=== PATIENT | male | born 1970 | race Caucasian/White ===

== ENCOUNTER 2017-08-12 08:52 | Outpatient (CLI) | payer OTHER ==
--- NOTE | 2017-08-17 11:31 | CT Report ---
ABDOMEN ANGIOGRAPHIC CT: 08/12/2017 COMPARISON: Abdomen CT 09/28/2014. INDICATION: Followup celiac artery. Possible dissection. TECHNIQUE: Imaging of the abdomen with intravenous contrast, 100 mL Isovue-[id number]. Coronal and sagittal reformats. FINDINGS There is a 7 mm solid nodule of the anterior mid right lung, axial image number 3. There is a stable right renal cyst. 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 Again seen is little to no flow within the proximal common hepatic artery, which appears to reconstitute just to the right of the inferior vena cava - pancreatic head. The aorta, SMA, ELIZABETH, renal arteries, and iliac systems appear to opacify normally. The liver, spleen, pancreas, and adrenal glands appear unremarkable. There are multiple colon diverticula without evidence of diverticulitis. No free air or free fluid is seen in the abdomen. No bulky adenopathy. No bone lesions are demonstrated. IMPRESSION 1. STABLE APPEARING CELIAC ARTERY DISSECTION. 2. UNCHANGED APPEARANCE OF SLOW TO NO FLOW IN THE PROXIMAL COMMON HEPATIC ARTERY WITH RECONSTITUTION SHORTLY THEREAFTER. 3. PULMONARY NODULE ON THE RIGHT IS APPARENTLY STABLE OVER APPROXIMATELY 23 MONTHS. MTDD
== END 2017-08-12 08:53 | disposition home or self-care (01) ==
LOC: DI 08:52
DX: I77.79 Dissection of other specified artery (principal); R91.1 Solitary pulmonary nodule
CPT/HCPCS: 74175; Q9967

== ENCOUNTER 2018-11-26 11:33 | Emergency (ER) | payer OTHER ==
[2018-11-26] MEDS ORDERED: METOPROLOL SUCCINATE 50 MG TABLET PO STA (12:17)
[2018-11-26] MEDS ORDERED: BENZONATATE 100 MG CAPSULE PO STA (12:17)
--- NOTE | 2018-11-26 12:21 | ED Physician Documentation ---
PD HPI CHEST PAIN - Stated complaint Stated Complaint: SOB/COUGH - Chief complaint Chief Complaint: Resp - History obtained from History obtained from: Patient - History of Present Illness Timing - onset: Yesterday (This is a 48-year-old gentleman with medically managed aortic dissection diagnosed in 2014. No surgery on same. He developed a minimally productive cough yesterday and was coughing a lot yesterday evening in fact threw up last night because of the cough and could not keep down his metoprolol last night. Since last night he is also had constant mild chest pain radiating to the back. It is different in quality and much less in quantity than prior dissection pain. It is not just with coughing though. He is not short of breath. He denies pedal edema or calf pain.) Review of Systems Ten Systems: 10 systems reviewed and negative Constitutional: denies: Fever, Chills Nose: reports: Rhinorrhea / runny nose Cardiac: reports: Chest pain / pressure. denies: Palpitations Respiratory: reports: Cough. denies: Dyspnea GI: denies: Abdominal Pain PD PAST MEDICAL HISTORY - Past Medical History Cardiovascular: None Endocrine/Autoimmune: None GI: GERD - Past Surgical History Past Surgical History: No - Present Medications Home Medications: Ambulatory Orders Medication Instructions Recorded Confirmed Aspirin 81 mg PO 11/26/18 Benzonatate [Tessalon Perle] 100 - 200 mg PO TID PRN #30 capsule 11/26/18 Metoprolol Succinate 100 mg PO 11/26/18 Rabeprazole Sodium 20 mg PO 11/26/18 Ranitidine HCl [Acid Control] 150 mg PO 11/26/18 Rosuvastatin Calcium [Crestor] 20 mg PO 11/26/18 guaiFENesin/CODEINE [Robitussin AC] 5 - 10 ml PO Q6H PRN #120 ml 11/26/18 - Allergies Allergies/Adverse Reactions: Allergies Allergy/AdvReac Type Severity Reaction Status Date / Time No Known Drug Allergies Allergy Verified 09/28/14 17:05 - Social History Does the pt smoke?: No Smoking Status: Never smoker Does the pt drink ETOH?: No Does the pt have substance abuse?: No - Immunizations Immunizations are current?: Yes - POLST Patient has POLST: No PD ED PE NORMAL - Vitals Vital signs reviewed: Yes - General General: Alert and oriented X 3, No acute distress - HEENT HEENT: PERRL, EOMI - Neck Neck: Supple, no meningeal sign, No bony TTP - Cardiac Cardiac: RRR, No murmur - Respiratory Respiratory: No respiratory distress, Clear bilaterally - Abdomen Abdomen: Normal bowel sounds, Soft, Non tender - Derm Derm: Normal color, Warm and dry, No rash - Extremities Extremities: No edema, No calf tenderness / cord - Neuro Neuro: Alert and oriented X 3, Normal speech Results - Vitals Vitals: Vital Signs - 24 hr 11/26/18 11/26/18 11/26/18 11:37 12:06 13:27 Temperature 36.8 C Heart Rate 78 73 83 Respiratory 16 18 18 Rate Blood Pressure 127/82 H 143/76 H 125/82 H O2 Saturation 97 99 99 Oxygen O2 Source Room air - EKG (time done) 1155 Rate: Rate (enter#) (78) Rhythm: NSR [place]: Normal Intervals: Normal CO QRS: Normal Ischemia: Normal ST segments Computer interpretation: Agree with computer - Labs Labs: Laboratory Tests 11/26/18 11/26/18 11/26/18 12:30 12:30 12:30 WBC 6.7 RBC 5.05 Hgb 15.5 Hct 44.6 MCV 88.3 MCH 30.7 MCHC 34.8 RDW 13.1 Plt Count 138 MPV 9.6 Neut # (Auto) 4.5 Lymph # (Auto) 1.0 L [place] # (Auto) 0.9 Eos # (Auto) 0.1 Baso # (Auto) 0.2 H Absolute Nucleated RBC 0.00 Nucleated RBC % 0.0 PT 13.9 H INR 1.2 Sodium 134 L Potassium 3.5 Chloride 102 Carbon Dioxide 25 Anion Gap 7.0 BUN 21 H Creatinine 0.7 Estimated GFR (MDRD) 121 Glucose 114 H Calcium 8.7 Total Bilirubin 0.8 AST 30 ALT 35 Alkaline Phosphatase 85 Troponin I Total Protein 7.6 Albumin 4.5 Globulin 3.1 Albumin/Globulin Ratio 1.5 Lipase 29 11/26/18 12:30 WBC RBC Hgb Hct MCV MCH MCHC RDW Plt Count MPV Neut # (Auto) Lymph # (Auto) [place] # (Auto) Eos # (Auto) Baso # (Auto) Absolute Nucleated RBC Nucleated RBC % PT INR Sodium Potassium Chloride Carbon Dioxide Anion Gap BUN Creatinine Estimated GFR (MDRD) Glucose Calcium Total Bilirubin AST ALT Alkaline Phosphatase Troponin I < 0.04 Total Protein Albumin Globulin Albumin/Globulin Ratio Lipase - Rads (name of study) CTA Chest Radiology: EMP read contemporaneously (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 Seemed benign but the history of dissection at relatively young age and the combination of chest and back pain is worrisome and prompted a workup including CTA of the chest with no acute findings. Departure - Departure Disposition: Home, Self Care Clinical Impression: Cough, Celiac artery dissection Chest pain Qualifiers: Chest pain type: precordial pain Qualified Code(s): R07.2 - Precordial pain Condition: Good Record reviewed to determine appropriate education?: Yes Instructions: ED URI Viral Prescriptions: Benzonatate [Tessalon Perle] 100 - 200 mg PO TID PRN #30 capsule PRN Reason: Cough guaiFENesin/CODEINE [Robitussin AC] 5 - 10 ml PO Q6H PRN #120 ml PRN Reason: Cough Comments: Call your doctor to arrange a follow-up appointment, make the next available appointment. In the interim, return anytime if worse or if new symptoms de velop.
--- NOTE | 2018-11-26 12:34 | XRAY Report ---
Reason: chest pain/cough Procedure Date: 11/26/2018 Accession Number: [id number] / [id number] Procedure: XR - Chest 2 View X-Ray CPT Code: 67667 FULL RESULT: EXAM: CHEST RADIOGRAPHY EXAM DATE: 11/26/2018 11:52 AM. CLINICAL HISTORY: Chest pain/cough. COMPARISON: 04/06/2009 4:44 PM. TECHNIQUE: 2 views. FINDINGS: Lungs/Pleura: No focal opacities evident. No pleural effusion. No pneumothorax. Normal volumes. Mediastinum: Heart and mediastinal contours are unremarkable. Other: None. IMPRESSION: No evidence for acute cardiothoracic process. RADIA
[2018-11-26 12:46] LABS: BASOPHILS # (AUTO) 0.2 10^3/uL (0.0-0.1); BASOPHILS % (AUTO) 2.8 %; EOSINOPHILS # (AUTO) 0.1 10^3/uL (0.0-0.7); EOSINOPHILS % (AUTO) 1.8 %; HGB - HEMOGLOBIN 15.5 g/dL (14.0-18.0); INR 1.2 (0.8-1.2); LYMPHOCYTES % (AUTO) 15.4 %; MEAN CORPUSCULAR HEMOGLOBIN 30.7 pg (27.0-31.0); MEAN CORPUSCULAR HGB CONC 34.8 g/dL (32.0-36.0); MEAN CORPUSCULAR VOLUME 88.3 fL (80.0-94.0); MEAN PLATELET VOLUME 9.6 fL (7.4-11.4); MONOCYTES # (AUTO) 0.9 10^3/uL (0.0-1.0); NEUTROPHILS # (AUTO) 4.5 10^3/uL (1.5-6.6); PLT - PLATELET COUNT 138 10^3/uL (130-450); PT - PROTHROMBIN TIME 13.9 secs (9.9-12.6); RED BLOOD COUNT 5.05 10^6/uL (4.70-6.10); RED CELL DISTRIBUTION WIDTH 13.1 % (12.0-15.0); WHITE BLOOD COUNT 6.7 x10^3/uL (4.8-10.8)
[2018-11-26 12:50] LABS: ALBUMIN 4.5 g/dL (3.2-5.5); ALBUMIN/GLOBULIN RATIO 1.5 (1.0-2.2); BILIRUBIN,TOTAL 0.8 mg/dL (0.2-1.0); CALCIUM 8.7 mg/dL (8.5-10.3); CREATININE 0.7 mg/dL (0.6-1.2); TOTAL PROTEIN 7.6 g/dL (6.7-8.2)
[2018-11-26] MEDS ORDERED: IOPAMIDOL-300 100 ML VIAL ONE (13:06)
--- NOTE | 2018-11-26 14:10 | CT Report ---
Reason: aorta protocol, CP/back pain, H/O dissection, Procedure Date: 11/26/2018 Accession Number: [id number] / [id number] Procedure: CT - ANGIO CHEST W/WO CPT Code: FULL RESULT: EXAM: CT ANGIOGRAM CHEST EXAM DATE: 11/26/2018 01:31 PM. CLINICAL HISTORY: Aorta protocol, CP/back pain, H/O dissection. COMPARISON: ABDOMEN ANGIO 08/12/2017 9:10 AM ANGIO AORTA W/RUNOFF 09/28/2014 7:04 PM. TECHNIQUE: Routine helical imaging was performed through the chest in the pulmonary arterial phase. IV Contrast: ISOVUE 300 100mL. Reconstructions: Coronal 3-D MIP reconstructions.Sagittal and coronal. In accordance with CT protocol optimization, one or more of the following dose reduction techniques were utilized for this exam: automated exposure control, adjustment of mA and/or KV based on patient size, or use of iterative reconstructive technique. FINDINGS: Vascular: No evidence for thoracic aortic aneurysm or dissection. The central pulmonary arteries demonstrate no evidence for pulmonary embolism. Lungs/Pleura: No consolidation, effusions or pneumothorax. Stable 7 mm pulmonary nodule right middle lobe (axial series 6, image 64) when compared back to 09/28/14. Mediastinum: No cardiac enlargement or adenopathy. Upper Abdomen: Chronic proximal celiac artery dissection. Little to no flow within proximal common hepatic artery, reconstituting just to the right of the inferior vena cava, stable. Other: None. IMPRESSION: 1. No evidence for thoracic aortic aneurysm or dissection. 2. 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 RADIA
[2018-11-26 14:24] VITALS: BP 137/78
[2018-11-28] MEDS ORDERED: IOPAMIDOL-300 100 ML VIAL IVP ONE (08:56)
== END 2018-11-26 14:23 | disposition home or self-care (01) ==
LOC: ED 11:33
DX: R05 Cough (principal); I77.79 Dissection of other specified artery
CPT/HCPCS: 36415; 71046; 71275; 80053; 83690; 84484; 85025; 85610; 93005; 99283; 99284; A9270; Q9967

== ENCOUNTER 2022-11-22 15:21 | Emergency (ER) | payer OTHER ==
[2022-11-22 15:27] VITALS: BP 130/100
--- NOTE | 2022-11-22 16:01 | XRAY Report ---
PROCEDURE: Forearm LT INDICATIONS: Trauma TECHNIQUE: 2 views of the forearm were acquired. COMPARISON: None FINDINGS: Bones: Nondisplaced comminuted fracture of the distal third of the ulnar diaphysis. Chronic appearin g fracture of the ulnar styloid. No suspicious bony lesions. Soft tissues: No suspicious soft tissue calcifications or masses. IMPRESSION: Nondisplaced fracture of the ulna. Reviewed by: Rahul Farias MD on 11/22/2022 3:00 PM JOSE C Approved by: Rahul Farias MD on 11/22/2022 3:00 PM JOSE C Station ID: [id number]
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
[2022-11-22] MEDS ORDERED: HYDROcod/ACET 5/325 Prepack 4 PO STA (18:18)
== END 2022-11-22 18:57 | disposition home or self-care (01) ==
LOC: ED 15:21
DX: S52.202A Unspecified fracture of shaft of left ulna, initial encounter for closed fracture (principal); V86.52XA Driver of snowmobile injured in nontraffic accident, initial encounter; Y93.29 Activity, other involving ice and snow
CPT/HCPCS: 29125; 99283